=== PATIENT | male | born 1955 | race Caucasian/White ===

== ENCOUNTER 2017-10-19 10:29 | Observation (INO) | payer OTHER ==
[2017-10-19] VITALS (10 sets, daily range): BP systolic 123–168; BP diastolic 71–92; PULSE 58–85; RESP 16–18; TEMP 98.1–98.6; O2SAT 95–99
[~2017-10-19] VITALS: Ht 167.6 cm; Wt 92.4 kg
[~2017-10-19 10:29] MED LIST: [UNRECOGNIZED DRUG - CODE] RE
--- NOTE | 2017-10-19 10:40 | PD ---
HPI Chief Complaint: neuro Time Seen by Provider: 10:35 Travel History International Travel<30 days: No Contact w/Intl Traveler<30days: No History of Present Illness HPI Patient presents with concerns of left sided weakness with tingling and lightheadedness at approximately 7:30 this morning. Lightheadedness came and went a few times and has resolved. Weakness lasted approximately 15 minutes and has resolved. Tingling has been persistent. Reports a history of hyperlipidemia. Denies tobacco use. Denies diabetes. PFSH Past Medical History Diabetes: Yes Hiatal Hernia: Yes Social History Alcohol Use: Yes (SOCIALLY) Tobacco Use: No Substance Use: No Allergies-Medications (Allergen,Severity, Reaction): Coded Allergies: No Known Allergies (Unverified Adverse Reaction, Unknown, 10/19/17) Reported Meds & Prescriptions Reported Meds & Active Scripts Active Reported Aspirin EC (Aspirin) 81 Mg Tabdr 81 Mg PO DAILY Review of Systems General / Constitutional: No: Fever Eyes: No: Visual changes HENT: No: Headaches Cardiovascular: No: Chest Pain or Discomfort Respiratory: No: Shortness of Breath Gastrointestinal: No: Abdominal Pain Genitourinary: No: Dysuria Musculoskeletal: Positive: Weakness, No: Pain Skin: No Rash Neurologic: No: Weakness Psychiatric: No: Depression Endocrine: No: Polydipsia Hematologic/Lymphatic: No: Easy Bruising Physical Exam Narrative GENERAL: Well-nourished SKIN: Focused skin assessment warm/dry. HEAD: Atraumatic. Normocephalic. EYES: Pupils equal and round. No scleral icterus. No injection or drainage. ENT: No nasal bleeding or discharge. Mucous membranes pink and moist. NECK: Trachea midline. No JVD. CARDIOVASCULAR: Regular rate and rhythm. No murmur appreciated. RESPIRATORY: No accessory muscle use. Clear to auscultation. Breath sounds equal bilaterally. GASTROINTESTINAL: Abdomen soft, non-tender, nondistended. Hepatic and splenic margins not palpable. MUSCULOSKELETAL: No obvious deformities. No clubbing. No cyanosis. No edema. NEUROLOGICAL: Awake and alert. No obvious cranial nerve deficits. Motor grossly within normal limits. Normal speech. PSYCHIATRIC: Appropriate mood and affect; insight and judgment normal. ABCD 2 scale of 5 moderate risk Data Data Last Documented VS Vital Signs Date Time Temp Pulse Resp B/P (MAP) Pulse Ox O2 Delivery O2 Flow Rate FiO2 10/19/17 12:15 74 16 138/76 (96) 99 Room Air 10/19/17 10:30 98.1 Orders Orders Electrocardiogram (10/19/17 10:35) Prothrombin Time / Inr (Pt) (10/19/17 10:35) Complete Blood Count With Diff (10/19/17 10:35) Comprehensive Metabolic Panel (10/19/17 10:35) Troponin I (10/19/17 10:35) Urinalysis - C+S If Indicated (10/19/17 10:35) Ct Brain W/O Iv Contrast(Rout) (10/19/17 10:35) Ecg Monitoring (10/19/17 10:35) Iv Access Insert/Monitor (10/19/17 10:35) Oximetry (10/19/17 10:35) Blood Glucose (10/19/17 10:35) Aspirin (Aspirin) (10/19/17 10:45) Sodium Chloride 0.9% Flush (Ns Flush) (10/19/17 10:45) Place In Observation (10/19/17 ) Vital Signs (Adult) NORA.Q4H (10/19/17 12:51) Household Appliance Installer / Telemetry NORA.Q8H (10/19/17 12:51) ^ Fall Precautions (10/19/17 12:52) Admit Order (Ed Use Only) (10/19/17 ) Vital Signs (Adult) Q4H (10/19/17 12:53) Diet Heart Healthy (10/19/17 Lunch) Activity Oob With Assistance (10/19/17 12:53) Notify Dr: Other (10/19/17 12:53) Consult Neurology (10/19/17 ) Labs Laboratory Tests Test 10/19/17 11:10 10/19/17 12:35 White Blood Count 4.0 TH/MM3 Red Blood Count 4.74 MIL/MM3 Hemoglobin 15.0 GM/DL Hematocrit 44.3 % Mean Corpuscular Volume 93.6 FL Mean Corpuscular Hemoglobin 31.6 PG Mean Corpuscular Hemoglobin Concent 33.7 % Red Cell Distribution Width 13.1 % Platelet Count 182 TH/MM3 Mean Platelet Volume 7.3 FL Neutrophils (%) (Auto) 57.4 % Lymphocytes (%) (Auto) 26.1 % Monocytes (%) (Auto) 12.7 % Eosinophils (%) (Auto) 2.1 % Basophils (%) (Auto) 1.7 % Neutrophils # (Auto) 2.3 TH/MM3 Lymphocytes # (Auto) 1.0 TH/MM3 Monocytes # (Auto) 0.5 TH/MM3 Eosinophils # (Auto) 0.1 TH/MM3 Basophils # (Auto) 0.1 TH/MM3 CBC Comment DIFF FINAL Differential Comment Prothrombin Time 10.6 SEC Prothromb Time International Ratio 1.0 RATIO Blood Urea Nitrogen 14 MG/DL Creatinine 0.99 MG/DL Random Glucose 113 MG/DL Total Protein 6.3 GM/DL Albumin 3.4 GM/DL Calcium Level 8.3 MG/DL Alkaline Phosphatase 37 U/L Aspartate Amino Transf (AST/SGOT) 9 U/L Alanine Aminotransferase (ALT/SGPT) 31 U/L Total Bilirubin 0.6 MG/DL Sodium Level 139 MEQ/L Potassium Level 3.9 MEQ/L Chloride Level 106 MEQ/L Carbon Dioxide Level 25.2 MEQ/L Anion Gap 8 MEQ/L Estimat Glomerular Filtration Rate 76 ML/MIN Troponin I LESS THAN 0.02 NG/ML MDM Medical Decision Making Medical Screen Exam Complete: Yes Emergency Medical Condition: Yes Differential Diagnosis CVA, TIA, subdural bleed Narrative Course Assessment and plan discussed with patient and at bedside. EKG reveals sinus rhythm rate of 78. ABCD2 - 5 moderate risk factor Last [address] 10/19/17 1035 Signed Impressions: Service Date/Time: Thursday, October 19, 2017 10:45 - CONCLUSION: Negative noncontrast head CT. Bogdan Rosario MD Physician Communication Physician Communication Spoke with Dr August who recommended admission for further workup. Spoke with Dr Brown who is agreement, will admit with consult. Diagnosis Primary Impression: TIA (transient ischemic attack) Qualified Codes: G45.9 - Transient cerebral ischemic attack, unspecified Admitting Information Admitting Physician Requests: Admit Oleksandr Chaudhari MD Oct 19, 2017 10:40
[2017-10-19] MEDS ORDERED: SODIUM CHLORIDE 0.9% FLUSH 10 ML FLUSH IVF PRN (10:45)
[2017-10-19] MEDS ORDERED: ASPIRIN 325 MG TAB PO ONE (10:45)
--- NOTE | 2017-10-19 11:02 | RADRPT ---
EXAM DATE/TIME: 10/19/2017 10:45 [facility] COMPARISON: No previous studies available for comparison. INDICATIONS : Left sided weakness since this morning. RADIATION DOSE: 60.77 CTDIvol (mGy) MEDICAL HISTORY : Gastroesophageal reflux disease. Hernia, hiatal. Diabetes. SURGICAL HISTORY : None. ENCOUNTER: Initial ACUITY: 1 day PAIN SCALE: 0/10 LOCATION: cranial TECHNIQUE: Multiple contiguous axial images were obtained of the head. Using automated exposure control and adj ustment of the mA and/or kV according to patient size, radiation dose was kept as low as reasonably a chievable to obtain optimal diagnostic quality images. DICOM format image data is available electro nically for review and comparison. FINDINGS: CEREBRUM: The ventricles are normal for age. No evidence of midline shift, mass lesion, hemorrhage or acute in farction. No extra-axial fluid collections are seen. POSTERIOR FOSSA: The cerebellum and brainstem are intact. The 4th ventricle is midline. The cerebellopontine angle i s unremarkable. EXTRACRANIAL: The visualized portion of the orbits is intact. SKULL: The calvaria is intact. No evidence of skull fracture. CONCLUSION: Negative noncontrast head CT. Bogdan Rosario MD on October 19, 2017 at 11:00 Board Certified Radiologist. This report was verified electronically.
[2017-10-19 11:18] LABS: AUTOMATED NEUTROPHIL # 2.3 TH/MM3 (1.8-7.7); BASOPHIL # 0.1 TH/MM3 (0-0.2); BASOPHIL % 1.7 % (0.0-2.0); EOSINOPHIL # 0.1 TH/MM3 (0-0.4); EOSINOPHIL % 2.1 % (0.0-4.0); HEMATOCRIT 44.3 % (39.0-51.0); HEMO FLAGS DIFF FINAL; LYMPH % 26.1 % (9.0-44.0); MEAN CELL VOLUME 93.6 FL (80.0-100.0); MEAN CORPUSCULAR HEMOGLOBIN 31.6 PG (27.0-34.0); MEAN CORPUSCULAR HGB CONC 33.7 % (32.0-36.0); MONO % 12.7 % (0.0-8.0); NEUT % 57.4 % (16.0-70.0); PLATELET COUNT 182 TH/MM3 (150-450); RED BLOOD COUNT 4.74 MIL/MM3 (4.50-5.90); RED CELL DISTRIBUTION WIDTH 13.1 % (11.6-17.2)
[2017-10-19] MEDS ORDERED: ASPI81TA23 PO (11:20)
[2017-10-19 11:26] LABS: CHLORIDE 106 MEQ/L (98-107); POTASSIUM 3.9 MEQ/L (3.5-5.1); SODIUM (NA) 139 MEQ/L (136-145)
[2017-10-19 11:28] LABS: PROTHROMBIN TIME - PATIENT 10.6 SEC (9.8-11.6)
[2017-10-19 11:29] LABS: ANION GAP 8 MEQ/L (5-15); BICARBONATE 25.2 MEQ/L (21.0-32.0); BLOOD UREA NITROGEN 14 MG/DL (7-18)
[2017-10-19 11:32] LABS: ALT (GPT) 31 U/L (12-78); AST (GOT) 9 U/L (15-37); GLOMERULAR FILTRATION RATE 76 ML/MIN (>89)
[2017-10-19 11:34] LABS: TOTAL BILIRUBIN ADULT 0.6 MG/DL (0.2-1.0)
[2017-10-19 11:35] LABS: ALKALINE PHOSPHATASE 37 U/L (45-117)
[2017-10-19 12:56] LABS: BLOOD, URINE NEG (NEG); GLUCOSE,URINE NEG (NEG); KETONE, URINE NEG (NEG); NITRITE,URINE NEG (NEG); PH, URINE 6.5 (5.0-8.5)
[2017-10-19 13:00] LABS: COMMENT (UR) CULT NOT INDICATED; CULTURE IF INDICATED CULT NOT INDICATED; METHOD OF COLLECTION CATH; SQUAMOUS EPITHELIAL CELL URINE 0-5 /hpf (0-5); URINE COLOR YELLOW (YELLW/STRAW)
--- NOTE | 2017-10-19 13:05 | EKG ---
Date Performed: 10/19/2017 Time Performed: 10:41:49 PTAGE: 61 years EKG: Small inferior Q-waves of undetermined significance Otherwise within normal limits PREVIOUS TRACING : 10/23/2012 02.43 Since previous tracing, no significant change. DOCTOR: Merrick Quiroz Interpretating Date/Time 10/19/2017 13:04:11
[2017-10-19] MEDS ORDERED: DEXTROSE 50% IN WATER 50 ML VIAL(D50) IV PUSH PRN (14:30)
[2017-10-19] MEDS ORDERED: ENALAPRILAT 1.25 MG/ML VIAL IV PUSH PRN (14:30)
[2017-10-19] MEDS ORDERED: GLUCAGON 1 MG/ML VIAL OTHER PRN (14:30)
--- NOTE | 2017-10-19 16:38 | RADRPT ---
EXAM DATE/TIME: 10/19/2017 15:52 [facility] COMPARISON: No previous studies available for comparison. INDICATIONS : Cerebrovascular accident. MEDICAL HISTORY : Gastroesophageal reflux disease. Glasses. Anticoagulant therapy. Hiatal hernia. Diabetes. SURGICAL HISTORY : Hernia repair. Right acl repair. Left knee surgey. Left arm repair. ENCOUNTER: Initial ACUITY: 1 day PAIN SCORE: 0/10 LOCATION: Bilateral neck PEAK SYSTOLIC VELOCITIES (cm/sec): ICA/CCA RATIO: Right: 1.1 Left: 1.2 ICA: Right: 82 Left: 101 CCA: Right: 78 Left: 86 ECA: Right: 78 Left: 85 VERTEBRAL: Right: 43 antegrade Left: 94 antegrade Elevated flow velocities and ICA/CCA ratios have been found to correlate with increased degrees of vessel stenosis, calculated as percentage of diameter relative to a normal segment of distal ICA/CCA FINDINGS: RIGHT CAROTID: No significant stenosis is visualized. The waveforms are within normal limits. LEFT CAROTID: No significant stenosis is visualized. The waveforms are within normal limits. VERTEBRAL ARTERIES: Antegrade flow is seen in both vertebral arteries. MISCELLANEOUS: None. CONCLUSION: No significant stenosis is seen. Bogdna Alcocer MD on October 19, 2017 at 16:35 Board Certified Radiologist. This report was verified electronically.
--- NOTE | 2017-10-19 16:44 | ECHRPT ---
Indication: CVA/TIA CONCLUSIONS The left ventricular systolic function is normal with an estimated ejection fraction in the range of 55-60%. There is trace tricuspid valve regurgitation. Mild dilatation of the ascending aorta (3.9 cm) BP: / HR: Rhythm: MEASUREMENTS (Male / Female) Normal Values Technical Quality:Good 2D ECHO LV Diastolic Diameter PLAX 4.4 cm 4.2 - 5.9 / 3.9 - 5.3 cm LV Systolic Diameter PLAX 3.1 cm IVS Diastolic Thickness 0.9 cm 0.6 - 1.0 / 0.6 - 0.9 cm LVPW Diastolic Thickness 0.8 cm 0.6 - 1.0 / 0.6 - 0.9 cm LV Relative Wall Thickness 0.4 RV Internal Dim ED PLAX 2.3 cm LA Systolic Diameter LX 3.6 cm 3.0 - 4.0 / 2.7 - 3.8 cm M-MODE Aortic Root Diameter MM 3.7 cm AV Cusp Separation MM 2.4 cm DOPPLER Mitral E Point Velocity 93.8 cm/s Mitral A Point Velocity 82.1 cm/s Mitral E to A Ratio 1.1 TR Peak Velocity 258.0 cm/s TR Peak Gradient 26.6 mmHg FINDINGS LEFT VENTRICLE Normal left ventricular size. Wall thickness is measured at the upper limits of normal. The left ventricular systolic function is normal with an estimated ejection fraction in the range of 55-60%. No regional wall motion abnormalities are present. RIGHT VENTRICLE Normal right ventricular size and systolic function. LEFT ATRIUM The left atrial size is normal. RIGHT ATRIUM The right atrial size is normal. ATRIAL SEPTUM Normal atrial septal thickness. AORTA Mild dilatation of the ascending aorta of 3.9cm. MITRAL VALVE Structurally normal mitral valve. No mitral valve stenosis or regurgitation. AORTIC VALVE Trileaflet aortic valve. No aortic valve stenosis or regurgitation. TRICUSPID VALVE Structurally normal tricuspid valve. No tricuspid valve stenosis. There is trace tricuspid valve regurgitation. PULMONARY VALVE The pulmonary valve is not well visualized. VESSELS The inferior vena cava is normal in size. PERICARDIUM No pericardial effusion. Robert Franco DO (Electronically Signed) Final Date:19 October 2017 16:43
[2017-10-19] MEDS: INSULIN ASPART SUPPLEMENTAL SCALE SQ SCH ×2 (17:00→21:00)
--- NOTE | 2017-10-19 17:42 | RADRPT ---
EXAM DATE/TIME: 10/19/2017 17:23 [facility] COMPARISON: No previous studies available for comparison. INDICATIONS : Left side numbness and tingling. MEDICAL HISTORY : None. SURGICAL HISTORY : Hiatal hernia repair, right knee reconstruction. ENCOUNTER: Initial ACUITY: 1 day PAIN SCORE: 0/10 LOCATION: cranial Please note a normal MRA of the brain does not entirely exclude the possibility of a small aneurysm, nor the possibility of distal intracranial vessel disease. TECHNIQUE: 3D time of flight MRA was performed. Source images, multiplanar STS MIP, and 3D volume MIP reconstru ctions were reviewed. FINDINGS: There is excellent visualization of the major intracranial arteries out to the second-order branch ve ssels. There is no evidence for aneurysm, vessel truncation or stenosis, and no evidence for vascula r malformation. CONCLUSION: Normal examination for a patient of this age. Saul Hooper MD on October 19, 2017 at 17:40 Board Certified Radiologist. This report was verified electronically.
--- NOTE | 2017-10-19 17:57 | RADRPT ---
EXAM DATE/TIME: 10/19/2017 17:23 [facility] COMPARISON: No previous studies available for comparison. INDICATIONS : Left side numbness and tingling. MEDICAL HISTORY : None. SURGICAL HISTORY : Hiatal hernia repair, right knee reconstruction. ENCOUNTER: Initial ACUITY: 1 day PAIN SCORE: 0/10 LOCATION: cranial TECHNIQUE: Multiplanar, multisequence MRI of the brain was performed without contrast. FINDINGS: CEREBRUM: The ventricles are normal for age. No evidence of midline shift, mass lesion, hemorrhage or acute in farction. No extraaxial fluid collections are seen. The pituitary gland and suprasellar cistern are normal in configuration. WHITE MATTER: There are multiple focal small areas of signal abnormality within the cerebral white matter. POSTERIOR FOSSA: The cerebellum and brainstem are intact. The 4th ventricle is midline. The cerebellopontine angle is unremarkable. The cerebellar tonsils are normal in position. DIFFUSION IMAGING: No focal areas of restricted diffusion are seen. No evidence of acute infarction. EXTRACRANIAL: The visualized portions of the orbits are unremarkable. There is a mucous retention cyst at the right maxillary sinus. There is minimal mucosal thickening at the medial left maxillary sinus. CONCLUSION: 1. No acute abnormality seen. 2. Scattered multiple focal areas of signal abnormality within the cerebral white matter. These are n onspecific. They can be from small vessel ischemic change Bogdan Alcocer MD on October 19, 2017 at 17:52 Board Certified Radiologist. This report was verified electronically.
--- NOTE | 2017-10-19 20:09 | MH ---
cc: SOHA BHARDWAJ DATE OF ADMISSION: 10/19/2017 ADMITTING DIAGNOSIS: TIA. HISTORY OF PRESENT ILLNESS: Mr. Schmidt is a very pleasant 61-year gentleman who presented to the emergency room after waking up this morning and experiencing some numbness and tingling on his left side. He says he has had back issues in the past so he thought perhaps this was related to that; however, the symptoms did not resolve. Later on during the course of the morning, he started developing some numbness on his left mid arm as well. He says that actually when he in the shower he could not feel water hitting the upper area of his arm. This concerned him so he came to the emergency room. He says also at the time he did have a slight headache. He does relate a slight twinge in his chest that was specifically located and did not radiate. It did not cause any shortness of breath. He says the numbness and tingling in his left arm his left leg came and went throughout the day. He did feel little bit of heaviness in his left leg but he does not describe any difficulty moving and with ambulation. He states he had been in good health until this event. He has not been sick and has not been having any fevers. He has not had any recent neck pain or lower back pain. His lower back problems were quite a while ago. He denies any history of hypertension. He states he is not diabetic. He has had some hyperlipidemia but he says he has never had to go on medications with that and every time his cholesterol has gone up, he is able to bring it down. He is a prior smoker of one pack in approximately one to two weeks. He stopped in the . PAST MEDICAL HISTORY: 1. Borderline cholesterol. 2. Benign prostate hypertrophy. 3. He has also had prior issues with his back. PAST SURGICAL HISTORY: 1. Arthroscopic surgery of his right knee. 2. He has had an umbilical hernia repair. 3. He did have surgery on his left cheek in the past. ALLERGIES: HE DENIES. CURRENT MEDICATIONS: 1. A baby aspirin. 2. Cialis 5 milligrams for his benign prostate hypertrophy. HABITS: He is a former smoker, as stated. He has not smoked since the . He smokes only socially. He drinks only socially. SOCIAL HISTORY: He is . His is in the room with him. He is currently retired. 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 He says he spends three days a week taking care of his 3-year-old grandchild. REVIEW OF SYSTEMS: No fevers or chills. No cough. No palpitations. No shortness of breath. He has denied any abdominal pain or any change in his bowel movements. No difficulty with urination. PHYSICAL EXAMINATION: VITAL SIGNS: On physical exam, temperature is 94, pulse is 65, respirations 18, blood pressure is 124/71, pulse ox is 97% room air. GENERAL: He is lying in the hospital bed. He has a very pleasant and conversant and does not appear to be in any acute distress. HEAD, EYES, EARS, NOSE, THROAT: Normocephalic and traumatic. Extraocular muscles intact. He has a clear oral mucosa. NECK: Neck is supple. I hear no bruits. He does have a scar on his left cheek. LUNGS: His lungs were clear to auscultation bilaterally. HEART: His heart is regular rate and rhythm. He has no ectopy or murmur. ABDOMEN: Abdomen is globose. He has got good bowel sounds in all four quadrants. No rebound or guarding. EXTREMITIES: Show no clubbing, cyanosis or edema. He is able to use move all extremities well. NEUROLOGIC: Muscle strength is 5/5 proximal and distal. He describes to me areas of numbness in his left arm on the lateral aspect, I would say fpc down the upper arm as well and the same on the lateral aspect of left upper thigh. Both of these areas at this point have sensation. LABORATORY DATA: Lab work that was done when he came into the emergency room showed white count of 4, hemoglobin of 15, hematocrit of 44.3, platelet count of 182,000. PT was 10.6. INR was 1. Sodium was 139, potassium 3.9, BUN 14, creatinine 0.99, GFR was 76, random glucose was 113. Liver function tests were normal. Troponin was less than 0.02. His urinalysis was negative. IMAGING STUDIES: CT scan of the brain that was performed when he presented was read as negative. MRI of the brain showed no acute abnormality. There were scattered multifocal areas of signal abnormality within the cerebral white matter. These are nonspecific. They could be from small vessel ischemic changes. Carotid arteries showed no significant stenosis. The MRA of the brain was normal for a patient of his age. EKGS: His EKG showed small inferior T waves of indeterminate significance. I had ordered an echocardiogram and this has already been done and showed an ejection fraction in the range of 55% to 60%. This is remarkable for mild dilatation of the ascending aorta 3.9 cm and trace tricuspid valve regurgitation. ASSESSMENT AND PLAN: This is a 61-year-old patient presenting to the emergency room with history highly suggestive of TIA. So far his workup has been negative. The ER doctor did speak to Dr. Auguts from neurology who commended his admission and further evaluation, which has been done during the course of this afternoon. At this point, I will continue him with a full aspirin. His Holter monitor is still pending. I did discuss with the patient that at this point a lot of what we do consists of prevention and control of blood pressure. I did order hemoglobin A1c to check for diabetes as well as a lipid profile. We may need to be above more aggressive in controlling his cholesterol at this point. If his Holter monitor his is unrevealing, I expect discharge tomorrow after he has been seen by neurology. MD MICHELLE Ayers/YANELI /7:33 PM /7:47 PM
--- NOTE | 2017-10-19 20:58 | HHI.PR ---
Review/Management Diagnosis TIA HTN urgency HLD Plan Neuro checks Q4h Aspirin 162mg daily MRI brain w/o contrast CUS DVT prophylaxis Statin GI prophylaxis Diagnosis/Plan: Subjective Subjective Comments - I was called by ED physician at [facility], about the TIA/ Stroke like symptoms, and given the resolution of symptoms, patient would not be a candidate for iv thrombolysis, and I recommended patient to be admitted for TIA work up. - In the afternoon, I stopped by the hospital room to examine the patient twice , first time, he was undergoing carotid US study, thus, I rounded on other patients, then I stopped by the second time, where there were family members at the bed side, but when I started the clinical encounter, a stroke alert at the main [facility] hospital was called, I had to go to the other hospital.The patient and family understand this. Active Medications Current Medications Medications (Trade) Dose Ordered Sig/Pardeep Route Start Time Stop Time Status Last Admin (NS Flush) 2 ml UNSCH PRN IVF 10/19/17 10:45 (Vasotec Inj) 1.25 mg Q4H PRN IV PUSH 10/19/17 14:30 (Aspirin) 325 mg DAILY PO 10/20/17 09:00 (NovoLOG SUPPLEMENTAL SCALE) 1 ACHS SQ 10/19/17 17:00 (D50w (Vial) Inj) 50 ml UNSCH PRN IV PUSH 10/19/17 14:30 (Glucagon Inj) 1 mg UNSCH PRN OTHER 10/19/17 14:30 Allergies Allergies Coded Allergies No Known Allergies (Unverified Allergy, Unknown, 10/19/17) Review of Systems All other ROS: ROS reviewed as documented in chart Exam I&O / VS 10/19/17 10/19/17 10/20/17 14:59 22:59 06:59 Intake Total 300 ml Output Total 550 ml Balance -550 ml 300 ml Intake Oral 300 ml Output Urine Total 550 ml Vital Signs Date Time Temp Pulse Resp B/P (MAP) Pulse Ox O2 Delivery O2 Flow Rate FiO2 10/19/17 17:00 98.4 65 18 124/71 (88) 97 10/19/17 16:07 69 10/19/17 14:12 68 16 138/90 (106) 97 10/19/17 13:15 72 16 144/88 (106) 98 Room Air 10/19/17 12:30 69 16 97 Room Air 10/19/17 12:15 74 16 138/76 (96) 99 Room Air 10/19/17 11:15 67 16 130/79 (96) 98 Room Air 10/19/17 10:35 82 16 98 Room Air 10/19/17 10:30 98.1 85 16 168/92 (117) 98 10/19/17 10:30 16 98 Room Air Objective Path Results Last [address] 10/19/17 1035 Signed Impressions: Service Date/Time: Thursday, October 19, 2017 10:45 - CONCLUSION: Negative noncontrast head CT. Bogdan Rosario MD Head Magnetic Resonance Angiography 10/19/17 0000 Signed Impressions: Service Date/Time: Thursday, October 19, 2017 17:23 - CONCLUSION: Normal examination for a patient of this age. Saul Hooper MD Carotid Artery Ultrasound 10/19/17 0000 Signed Impressions: Service Date/Time: Thursday, October 19, 2017 15:52 - CONCLUSION: No significant stenosis is seen. Bogdan Alcocer MD Brain MRI 10/19/17 0000 Signed Impressions: Service Date/Time: Thursday, October 19, 2017 17:23 - CONCLUSION: 1. No acute abnormality seen. 2. Scattered multiple focal areas of signal abnormality within the cerebral white matter. These are nonspecific. They can be from small vessel ischemic change Bogdan Alcocer MD Micro and Labs Laboratory Tests Test 10/19/17 11:10 10/19/17 12:35 10/19/17 15:42 10/19/17 20:32 White Blood Count 4.0 Red Blood Count 4.74 Hemoglobin 15.0 Hematocrit 44.3 Mean Corpuscular Volume 93.6 Mean Corpuscular Hemoglobin 31.6 Mean Corpuscular Hemoglobin Concent 33.7 Red Cell Distribution Width 13.1 Platelet Count 182 Mean Platelet Volume 7.3 Neutrophils (%) (Auto) 57.4 Lymphocytes (%) (Auto) 26.1 Monocytes (%) (Auto) 12.7 Eosinophils (%) (Auto) 2.1 Basophils (%) (Auto) 1.7 Neutrophils # (Auto) 2.3 Lymphocytes # (Auto) 1.0 Monocytes # (Auto) 0.5 Eosinophils # (Auto) 0.1 Basophils # (Auto) 0.1 CBC Comment DIFF FINAL Differential Comment Prothrombin Time 10.6 Prothromb Time International Ratio 1.0 Blood Urea Nitrogen 14 Creatinine 0.99 Random Glucose 113 Total Protein 6.3 Albumin 3.4 Calcium Level 8.3 Alkaline Phosphatase 37 Aspartate Amino Transf (AST/SGOT) 9 Alanine Aminotransferase (ALT/SGPT) 31 Total Bilirubin 0.6 Sodium Level 139 Potassium Level 3.9 Chloride Level 106 Carbon Dioxide Level 25.2 Anion Gap 8 Estimat Glomerular Filtration Rate 76 Troponin I LESS THAN 0.02 LESS THAN 0.02 Urine Collection Type CATH Urine Color YELLOW Urine Turbidity CLEAR Urine pH 6.5 Urine Specific [place] 1.011 Urine Protein NEG Urine Glucose (UA) NEG Urine Ketones NEG Urine Occult Blood NEG Urine Nitrite NEG Urine Bilirubin NEG Urine Leukocyte Esterase NEG Urine Squamous Epithelial Cells 0-5 Microscopic Urinalysis Comment CULT NOT INDICATED Katlyn August MD Oct 19, 2017 20:58
[2017-10-20] VITALS: BP 106/59; PULSE 55; RESP 16; TEMP 98.6; O2SAT 98
[2017-10-20 08:00] VITALS: BP 135/76; PULSE 69; RESP 16; TEMP 97.6; O2SAT 96
[2017-10-20] MEDS: INSULIN ASPART SUPPLEMENTAL SCALE SQ SCH ×2 (08:00→12:00)
[2017-10-20] MEDS ORDERED: ASPIRIN 325 MG TAB PO SCH (09:00)
[2017-10-20 09:16] LABS: POTASSIUM 4.2 MEQ/L (3.5-5.1)
[2017-10-20 09:49] LABS: BICARBONATE 27.7 MEQ/L (21.0-32.0)
--- NOTE | 2017-10-20 10:28 | HHI.PR ---
Subjective Remarks No further episodes of numbness since yesterday. Objective Vitals Vital Signs Date Time Temp Pulse Resp B/P (MAP) Pulse Ox O2 Delivery O2 Flow Rate FiO2 10/20/17 08:00 97.6 69 16 135/76 (95) 96 10/20/17 00:00 98.6 55 16 106/59 (75) 98 10/19/17 21:29 61 18 123/85 (98) 95 10/19/17 20:10 66 10/19/17 20:00 98.6 58 16 123/76 (92) 97 10/19/17 17:00 98.4 65 18 124/71 (88) 97 10/19/17 16:07 69 10/19/17 14:12 68 16 138/90 (106) 97 10/19/17 13:15 72 16 144/88 (106) 98 Room Air 10/19/17 12:30 69 16 97 Room Air 10/19/17 12:15 74 16 138/76 (96) 99 Room Air 10/19/17 11:15 67 16 130/79 (96) 98 Room Air 10/19/17 10:35 82 16 98 Room Air 10/19/17 10:30 98.1 85 16 168/92 (117) 98 10/19/17 10:30 16 98 Room Air Result Diagram: 10/19/17 1110 10/20/17 0850 Other Results Laboratory Tests Test 10/19/17 11:10 10/19/17 12:35 10/19/17 15:42 10/19/17 20:32 White Blood Count 4.0 TH/MM3 Red Blood Count 4.74 MIL/MM3 Hemoglobin 15.0 GM/DL Hematocrit 44.3 % Mean Corpuscular Volume 93.6 FL Mean Corpuscular Hemoglobin 31.6 PG Mean Corpuscular Hemoglobin Concent 33.7 % Red Cell Distribution Width 13.1 % Platelet Count 182 TH/MM3 Mean Platelet Volume 7.3 FL Neutrophils (%) (Auto) 57.4 % Lymphocytes (%) (Auto) 26.1 % Monocytes (%) (Auto) 12.7 % Eosinophils (%) (Auto) 2.1 % Basophils (%) (Auto) 1.7 % Neutrophils # (Auto) 2.3 TH/MM3 Lymphocytes # (Auto) 1.0 TH/MM3 Monocytes # (Auto) 0.5 TH/MM3 Eosinophils # (Auto) 0.1 TH/MM3 Basophils # (Auto) 0.1 TH/MM3 CBC Comment DIFF FINAL Differential Comment Prothrombin Time 10.6 SEC Prothromb Time International Ratio 1.0 RATIO Blood Urea Nitrogen 14 MG/DL Creatinine 0.99 MG/DL Random Glucose 113 MG/DL Total Protein 6.3 GM/DL Albumin 3.4 GM/DL Calcium Level 8.3 MG/DL Alkaline Phosphatase 37 U/L Aspartate Amino Transf (AST/SGOT) 9 U/L Alanine Aminotransferase (ALT/SGPT) 31 U/L Total Bilirubin 0.6 MG/DL Sodium Level 139 MEQ/L Potassium Level 3.9 MEQ/L Chloride Level 106 MEQ/L Carbon Dioxide Level 25.2 MEQ/L Anion Gap 8 MEQ/L Estimat Glomerular Filtration Rate 76 ML/MIN Troponin I LESS THAN 0.02 NG/ML LESS THAN 0.02 NG/ML LESS THAN 0.02 NG/ML Urine Collection Type CATH Urine Color YELLOW Urine Turbidity CLEAR Urine pH 6.5 Urine Specific [place] 1.011 Urine Protein NEG mg/dL Urine Glucose (UA) NEG mg/dL Urine Ketones NEG mg/dL Urine Occult Blood NEG Urine Nitrite NEG Urine Bilirubin NEG Urine Leukocyte Esterase NEG Urine Squamous Epithelial Cells 0-5 /hpf Microscopic Urinalysis Comment CULT NOT INDICATED Vitamin B12 Level 257 PG/ML Thyroid Stimulating Hormone 3rd Gen 3.310 uIU/ML Test 10/20/17 03:10 10/20/17 08:50 Troponin I LESS THAN 0.02 NG/ML Blood Urea Nitrogen 11 MG/DL Creatinine 1.00 MG/DL Random Glucose 118 MG/DL Calcium Level 8.7 MG/DL Sodium Level 138 MEQ/L Potassium Level 4.2 MEQ/L Chloride Level 104 MEQ/L Carbon Dioxide Level 27.7 MEQ/L Anion Gap 6 MEQ/L Estimat Glomerular Filtration Rate 75 ML/MIN Imaging Last Impressions Head CT 10/19/17 1035 Signed Impressions: Service Date/Time: Thursday, October 19, 2017 10:45 - CONCLUSION: Negative noncontrast head CT. Bogdan Rosario MD Head Magnetic Resonance Angiography 10/19/17 0000 Signed Impressions: Service Date/Time: Thursday, October 19, 2017 17:23 - CONCLUSION: Normal examination for a patient of this age. Saul Hooper MD Carotid Artery Ultrasound 10/19/17 0000 Signed Impressions: Service Date/Time: Thursday, October 19, 2017 15:52 - CONCLUSION: No significant stenosis is seen. Bogdan Alcocer MD Brain MRI 10/19/17 0000 Signed Impressions: Service Date/Time: Thursday, October 19, 2017 17:23 - CONCLUSION: 1. No acute abnormality seen. 2. Scattered multiple focal areas of signal abnormality within the cerebral white matter. These are nonspecific. They can be from small vessel ischemic change Bogdan Alcocer MD Objective Remarks Walking in room Lungs cta heart rrr ext no c/c/e A/P Problem List: (1) TIA (transient ischemic attack) ICD Codes: G45.9 - Transient cerebral ischemic attack, unspecified Status: Resolved Plan: Symptoms resolved at this point. Morning labwork still pending. discussed that if cholesterol elevated will start on statin to be aggressive with risk factors. Neurologist has tried to see him twice. Will discuss with them if they have further recommendations. Continue full dose aspirin. Discharge Planning Discharge later today or bing am pending neurology input. Problem Qualifiers (1) TIA (transient ischemic attack): Qualified Codes: G45.9 - Transient cerebral ischemic attack, unspecified Faye Headley MD Oct 20, 2017 10:28
[2017-10-20 12:00] VITALS: BP 132/83; PULSE 71; RESP 16; TEMP 98.1; O2SAT 97
--- NOTE | 2017-10-20 14:27 | HHI.PR ---
Review/Management Diagnosis TIA HTN urgency HLD Plan Stable from neurology stand point Neurologic investigations are unremarkable with no acute intracranial abnormalities Aspirin 162mg daily Statin Follow up with neurology a outpatient Follow up with PCP for monitoring of BP Discussed case with RN Please call for questions Diagnosis/Plan: Subjective Subjective Comments No acute events reported Neurologic investigations are unremarkable, MRI brain, MRA Head & CIUS Full resolution of symptoms Patient endorses no new complaints No family at bed side Active Medications Current Medications Medications (Trade) Dose Ordered Sig/Pardeep Route Start Time Stop Time Status Last Admin (NS Flush) 2 ml UNSCH PRN IVF 10/19/17 10:45 (Vasotec Inj) 1.25 mg Q4H PRN IV PUSH 10/19/17 14:30 (Aspirin) 325 mg DAILY PO 10/20/17 09:00 10/20/17 08:27 (NovoLOG SUPPLEMENTAL SCALE) 1 ACHS SQ 10/19/17 17:00 (D50w (Vial) Inj) 50 ml UNSCH PRN IV PUSH 10/19/17 14:30 (Glucagon Inj) 1 mg UNSCH PRN OTHER 10/19/17 14:30 Allergies Allergies Coded Allergies No Known Allergies (Unverified Allergy, Unknown, 10/19/17) Review of Systems All other ROS: ROS reviewed as documented in chart Exam I&O / VS Vital Signs Date Time Temp Pulse Resp B/P (MAP) Pulse Ox O2 Delivery O2 Flow Rate FiO2 10/20/17 08:00 97.6 69 16 135/76 (95) 96 10/20/17 00:00 98.6 55 16 106/59 (75) 98 10/19/17 21:29 61 18 123/85 (98) 95 10/19/17 20:10 66 10/19/17 20:00 98.6 58 16 123/76 (92) 97 10/19/17 17:00 98.4 65 18 124/71 (88) 97 10/19/17 16:07 69 General: Alert and Oriented, No acute distress Eye: PERRL, Normal conjuctiva Respiratory: Lungs CTA, Non-labored respirations Cardiology: Normal rate, Intact pulses Neurologic: Oriented, Normal sensory, Normal motor, No focal defects, CN II- XII intact, Normal DTR's Psychiatric: Cooperative, Appropriate mood & affect, Normal judgement Objective Radiology Results Last [address] 10/19/17 1035 Signed Impressions: Service Date/Time: Thursday, October 19, 2017 10:45 - CONCLUSION: Negative noncontrast head CT. Bogdan Rosario MD Head Magnetic Resonance Angiography 10/19/17 0000 Signed Impressions: Service Date/Time: Thursday, October 19, 2017 17:23 - CONCLUSION: Normal examination for a patient of this age. Saul Hooper MD Carotid Artery Ultrasound 10/19/17 0000 Signed Impressions: Service Date/Time: Thursday, October 19, 2017 15:52 - CONCLUSION: No significant stenosis is seen. Bogdan Alcocer MD Brain MRI 10/19/17 0000 Signed Impressions: Service Date/Time: Thursday, October 19, 2017 17:23 - CONCLUSION: 1. No acute abnormality seen. 2. Scattered multiple focal areas of signal abnormality within the cerebral white matter. These are nonspecific. They can be from small vessel ischemic change Bogdan Alcocer MD Micro and Labs Laboratory Tests Test 10/19/17 15:42 10/19/17 20:32 10/20/17 03:10 10/20/17 08:50 Troponin I LESS THAN 0.02 LESS THAN 0.02 LESS THAN 0.02 Vitamin B12 Level 257 Thyroid Stimulating Hormone 3rd Gen 3.310 Blood Urea Nitrogen 11 Creatinine 1.00 Random Glucose 118 Calcium Level 8.7 Sodium Level 138 Potassium Level 4.2 Chloride Level 104 Carbon Dioxide Level 27.7 Anion Gap 6 Estimat Glomerular Filtration Rate 75 Triglycerides Level 102 Cholesterol Level 246 LDL Cholesterol 155 HDL Cholesterol 71.0 Cholesterol/HDL Ratio 3.46 Katlyn August MD Oct 20, 2017 14:27
[2017-10-20 15:57] LABS: HEMOGLOBIN A1a 1.1 %; HEMOGLOBIN A1b 0.8 %; HEMOGLOBIN Ao 85.6 %; HEMOGLOBIN F 0.9 %; HEMOGLOBIN LA1C 1.9 %; HEMOGLOBIN P3 3.6 %
[2017-10-20 16:00] VITALS: BP 146/88; PULSE 76; RESP 16; TEMP 98.2; O2SAT 97
[2017-10-20] MEDS ORDERED: ASA325 PO (16:05)
[2017-10-20] MEDS ORDERED: ATOR20TA15 PO (16:05)
[2017-10-21] MEDS ORDERED: ATORVASTATIN 20 MG TAB PO SCH (09:00)
--- NOTE | 2017-10-22 16:08 | HM ---
Date Performed: 10/20/2017 Time Performed: 15:49:00 HOOKUP DATE: 10/20/17 03:49:00 PM Mon ANALYSIS START TIME: 10/20/2017 3:54:00 PM ANALYSIS END TIME: 10/21/2017 3:58:00 PM PATIENT AGE: 61 PATIENT HEIGHT PATIENT WEIGHT DRUG LIST PATIENT DIAGNOSIS: TIA TEST NARRATIVE: The patient's average heart rate was 73 BPM. Heart rates greater than 120 B PM were noted 1% of the time. No episodes of bradycardia were noted. No pauses exceeding 2.0 sec onds were noted. 3 ventricular ectopics, which represented < 1% of the total beat count, were not ed. The highest ventricular ectopic frequency occurred from 09:00 PM to 10:00 PM Mon. During this t debra 1 VE(s) occurred. Ventricular ectopics were observed as 3 isolated beat(s) only. No couplets or runs were noted. 248 supraventricular ectopics, which represented < 1% of the total beat count, were noted. The highest supraventricular ectopic frequency occurred from 09:00 PM to 10:00 PM Mon. During this time 184 SVE(s) occurred. No episodes of ST depression (defined as -1.0 mm or more) w ere noted in channel 1. No episodes of ST depression (defined as -1.0 mm or more) were noted in cope freddy 2. No episodes of ST depression (defined as -1.0 mm or more) were noted in channel 3. TEST INTERPRETATION: Sinus rhythm and sinus tachycardia Rare PVCs S igned by : Marco Dawson
== END 2017-10-20 17:41 | disposition home or self-care (01) ==
LOC: PHED 10:29 → PHEDA 12:56 → PH3A 14:40
PROVIDERS: ADMIT Legal Medicine; ATTEND Legal Medicine
DX: I16.0 Hypertensive urgency (principal); R55 Syncope and collapse; R53.1 Weakness; R42 Dizziness and giddiness; E78.5 Hyperlipidemia, unspecified; N40.0 Benign prostatic hyperplasia without lower urinary tract symptoms; E83.51 Hypocalcemia; R79.89 Other specified abnormal findings of blood chemistry; R79.1 Abnormal coagulation profile; Z87.891 Personal history of nicotine dependence; Z79.82 Long term (current) use of aspirin
CPT/HCPCS: 70450; 70544; 70551; 80048; 80053; 80061; 81001; 82607; 82948; 83036; 84443; 84484; 85025; 85610; 86038; 93005; 93225; 93226; 93306; 93880; 97162; 97165; 99285; G0378; G8987; G8988; G8989

== ENCOUNTER 2018-09-05 06:25 | Observation (INO) ==
--- NOTE | 2018-09-05 07:08 | ED ---
HPI General Chief complaint: Chest Pain Stated complaint: Medical Time Seen by Provider: 09/05/18 06:51 Source: patient Mode of arrival: ambulatory Limitations: no limitations History of Present Illness HPI narrative: 62yo M with PMH of HLD, alcohol abuse, TIA here with c/o midsternal chest pain, generalized fatigue, intermittent irregular heart beat for 2 days. Said chest pain is mild, 1 or 2 out of 10, dull, nonradiating. Said it is intermittent and no exacerbating or alleviating factors. Denies any fever, cough, sob, n/v, abdominal pain, focal weakness or numbness. Last stress test was over 10 years ago. Does not have a traffic control signaler. Took aspirin 325mg today. Denies any family history of cardiac disease. Denies any drugs or cig smoking. Last alcoholic drink was yesterday afternoon. Related Data Home Medications Medication Instructions Recorded Confirmed aspirin 325 mg PO DAILY 09/05/18 09/05/18 atorvastatin 20 mg PO DAILY 09/05/18 09/05/18 Allergies Allergy/AdvReac Type Severity Reaction Status Date / Time No Known Allergies Allergy Verified 09/05/18 06:31 Review of Systems ROS: all other systems reviewed are negative [facility] Medical History Medical History Hyperlipidemia (Acute) TIA (transient ischemic attack) (Acute) Social History Social History Substance History: No History of Abuse Second Hand Smoke Exposure: No Smoking Status: Former smoker Tobacco Type: Cigarettes How Often Do You Have a Drink Containing Alcohol: 4 or more times a week Recent Travel in [facility] within the Last 8 Weeks: No Recent Out of Country Travel within the Last 8 Weeks: No Immunization History Tetanus Immunization: Unsure Exam Narrative Exam Narrative: GENERAL: [-] SKIN: Focused skin assessment warm/dry. HEAD: Atraumatic. Normocephalic. EYES: Pupils equal and round. No scleral icterus. No injection or drainage. ENT: No nasal bleeding or discharge. Mucous membranes pink and moist. NECK: Trachea midline. No JVD. CARDIOVASCULAR: Regular rate and rhythm. No murmur appreciated. RESPIRATORY: No accessory muscle use. Clear to auscultation. Breath sounds equal bilaterally. GASTROINTESTINAL: Abdomen soft, non-tender, nondistended. No rebound tenderness or guarding. MUSCULOSKELETAL: No obvious deformities. No clubbing. No cyanosis. Trace bilateral lower extremity edema. NEUROLOGICAL: Awake and alert. No obvious cranial nerve deficits. Motor grossly within normal limits. Normal speech. PSYCHIATRIC: Appropriate mood and affect; insight and judgment normal. Course Initial Documented Vital Signs Temperature 98.9 F 09/05/18 06:27 Pulse Rate 71 09/05/18 06:27 Respiratory Rate 19 09/05/18 06:27 Blood Pressure 172/93 H 09/05/18 06:27 Pulse Oximetry 98 09/05/18 06:27 Last Documented Vital Signs Temperature 98.5 F 09/05/18 11:08 Pulse Rate 64 09/05/18 11:08 Respiratory Rate 20 09/05/18 11:08 Blood Pressure 128/78 09/05/18 11:08 Pulse Oximetry 97 09/05/18 11:08 Medical Decision Making MDM Narrative Medical decision making narrative: 62yo M here with chest pain and generalized fatigue for 2 days. Pt said he sometimes feels like his heart beat is irregular and said in the past, this was from alcohol but does not actually have any diagnosis of arrhythmia. He is in sinus rhythm in the ED. He is on a continuous director of cardiac rehabilitation. Will obtain labs including cardiac enzymes and likely admit to chest pain center. Labs reviewed, no leukocytosis. H/H elevated. Troponin negative. K mildly decreased at 3.4, replaced orally. Lipase normal. TSH normal. Magnesium normal. CXR showed underinflated mild atelectasis at bases and possible nodular parenchymal opacity in the right lung zone. This could be further evaluated with good inspiratory formal PA and lateral views of the chest or consider follow up chest xray to confirm resolution. Repeat 2 view CXR showed no definite parenchymal opacity. Pt to be admitted to chest pain center for serial EKG and cardiac enzymes. Medical Screen Exam Complete: Yes Emergency Medical Condition: Yes Differential Diagnosis Differential Diagnosis: ACS vs. electrolyte abnormality vs. arrhythmia vs. alcohol cardiomyopathy Lab Data Result diagrams: 09/05/18 06:45 09/05/18 06:45 Lab Results 09/05/18 09/05/18 09/05/18 Range/Units 06:45 06:45 06:45 WBC 5.6 (4.0-11.0) th/mm3 RBC 5.29 (4.50-5.90) mil/mm3 Hgb 17.5 H (13.0-17.0) gm/dL Hct 51.3 H (39.0-51.0) % MCV 97.1 (80.0-100.0) fL MCH 33.1 (27.0-34.0) pg MCHC 34.1 (32.0-36.0) % RDW 14.5 (11.6-17.2) % Plt Count 193 (150-450) th/mm3 MPV 8.1 (7.0-11.0) fL Neut % (Auto) 48.4 (16.0-70.0) % Lymph % (Auto) 34.7 (9.0-44.0) % [place] % (Auto) 14.1 H (0.0-8.0) % Eos % (Auto) 2.1 (0.0-4.0) % Baso % (Auto) 0.7 (0.0-2.0) % Neut # (Auto) 2.7 (1.8-7.7) th/mm3 Lymph # (Auto) 1.9 (1.0-4.8) th/mm3 [place] # (Auto) 0.8 (0.0-0.9) th/mm3 Eos # (Auto) 0.1 (0.0-0.4) th/mm3 Baso # (Auto) 0.0 (0.0-0.2) th/mm3 WBC Differential . Differential Comment Auto diff final PT 10.4 (9.8-11.6) sec INR 1.0 Ratio APTT 28.6 (24.3-30.1) sec Sodium 142 (136-145) meq/L Potassium 3.4 L (3.5-5.1) meq/L Chloride 106 (98-107) meq/L Carbon Dioxide 28.8 (21.0-32.0) meq/L Anion Gap 7 (5-15) meq/L BUN 12 (7-18) mg/dL Creatinine 1.08 (0.60-1.30) mg/dL Estimated GFR 69 L (>89) mL/min Random Glucose 104 (74-106) mg/dL Calcium 9.3 (8.5-10.1) mg/dL Magnesium 2.3 (1.5-2.5) mg/dL Total Creatine Kinase (39-308) U/L Troponin I Less than 0.02 L (0.02-0.05) ng/mL Lipase 155 (73-393) U/L TSH 2.820 (0.358-3.740) uIU/mL Serum Alcohol Less than 3 (0-5) mg/dL 09/05/18 Range/Units 09:44 WBC (4.0-11.0) th/mm3 RBC (4.50-5.90) mil/mm3 Hgb (13.0-17.0) gm/dL Hct (39.0-51.0) % MCV (80.0-100.0) fL MCH (27.0-34.0) pg MCHC (32.0-36.0) % RDW (11.6-17.2) % Plt Count (150-450) th/mm3 MPV (7.0-11.0) fL Neut % (Auto) (16.0-70.0) % Lymph % (Auto) (9.0-44.0) % [place] % (Auto) (0.0-8.0) % Eos % (Auto) (0.0-4.0) % Baso % (Auto) (0.0-2.0) % Neut # (Auto) (1.8-7.7) th/mm3 Lymph # (Auto) (1.0-4.8) th/mm3 [place] # (Auto) (0.0-0.9) th/mm3 Eos # (Auto) (0.0-0.4) th/mm3 Baso # (Auto) (0.0-0.2) th/mm3 WBC Differential Differential Comment PT (9.8-11.6) sec INR Ratio APTT (24.3-30.1) sec Sodium (136-145) meq/L Potassium (3.5-5.1) meq/L Chloride (98-107) meq/L Carbon Dioxide (21.0-32.0) meq/L Anion Gap (5-15) meq/L BUN (7-18) mg/dL Creatinine (0.60-1.30) mg/dL Estimated GFR (>89) mL/min Random Glucose (74-106) mg/dL Calcium (8.5-10.1) mg/dL Magnesium (1.5-2.5) mg/dL Total Creatine Kinase 202 (39-308) U/L Troponin I Less than 0.02 L (0.02-0.05) ng/mL Lipase (73-393) U/L TSH (0.358-3.740) uIU/mL Serum Alcohol (0-5) mg/dL Imaging Data Radiologist's impression: Chest X-Ray 09/05/18 07:00 CONCLUSION: Underinflation with mild atelectasis at the bases and possible nodular parenchymal opacity in the right lower lung zone. This could be further evaluated with good inspiratory formal PA and lateral views of the chest or consider follow-up chest x-ray to confirm resolution. Chest X-Ray 09/05/18 08:21 CONCLUSION: No definite parenchymal opacity is identified. ECG Data EKG Prior to Arrival: No Attestation: I personally reviewed and interpreted this ECG as follows: Interpretation: NSR 73bpm. Normal axis. WV interval 179ms. QTc 409ms. No significant ST elevation or depression. Discharge Plan Discharge Disposition Patient Disposition: 30 Still Patient Discharge Condition Condition: Stable Discharge Order Discharge Orders: Discharge Order (Routine); Ordered 09/05/18 Ordered By: Yunior Dhillon Discharge Details Diagnosis: Chest pain Physicians Team ED Provider: Janene Can Primary Care Provider: Abelino Harmon Attending Provider: Merrick Quiroz Status ED Status: Left Department Discharge Information Discharge Date/Time: 09/05/18 10:00
--- NOTE | 2018-09-05 07:24 | XR ---
EXAM DATE: 09/05/2018 7:18 AM EDT AGE/SEX: 62 years / Male INDICATIONS: Patient states that he has chest discomfort. CLINICAL DATA: This is the patient's initial encounter. Patient reports that signs and symptoms have been present for 1 day and indicates a pain score of 3/10. MEDICAL/SURGICAL HISTORY: None. . Hiatal hernia; RT knee COMPARISON: No prior exams available for comparison. FINDINGS: Portable AP view of the chest demonstrates a normal-sized cardiac silhouette. EKG lines overlie the p atient. Lungs are mildly underinflated with mild degree of atelectasis at the lung bases. Parenchymal opacity in the right lower lobe appears somewhat nodular. No pleural effusion or pneumothorax is woo ntified. The bones and soft tissues demonstrate no acute abnormality. CONCLUSION: Underinflation with mild atelectasis at the bases and possible nodular parenchymal opacity in the rig ht lower lung zone. This could be further evaluated with good inspiratory formal PA and lateral views of the chest or consider follow-up chest x-ray to confirm resolution. Electronically signed by: Bogdan Bernstein MD 09/05/2018 7:23 AM EDT
[2018-09-05 07:38] LABS: Baso % (Auto) 0.7 % (0.0-2.0); Eos # (Auto) 0.1 th/mm3 (0.0-0.4); Eos % (Auto) 2.1 % (0.0-4.0); Hematocrit 51.3 % (39.0-51.0); Hemoglobin 17.5 gm/dL (13.0-17.0); Lymph # (Auto) 1.9 th/mm3 (1.0-4.8); Lymph % (Auto) 34.7 % (9.0-44.0); Mean Corpuscular HGB Conc 34.1 % (32.0-36.0); Mean Corpuscular Hemoglobin 33.1 pg (27.0-34.0); Mean Corpuscular Volume 97.1 fL (80.0-100.0); Mean Platelet Volume 8.1 fL (7.0-11.0); Mono # (Auto) 0.8 th/mm3 (0.0-0.9); Mono % (Auto) 14.1 % (0.0-8.0); Neut # (Auto) 2.7 th/mm3 (1.8-7.7); Neut % (Auto) 48.4 % (16.0-70.0); Platelet Count 193 th/mm3 (150-450); Red Blood Count 5.29 mil/mm3 (4.50-5.90); Red Cell Distribution Width 14.5 % (11.6-17.2); White Blood Count 5.6 th/mm3 (4.0-11.0)
[2018-09-05 07:43] LABS: Activated Partial Thrombo Time 28.6 sec (24.3-30.1); Prothrombin Time 10.4 sec (9.8-11.6)
[2018-09-05 07:49] LABS: Anion Gap 7 meq/L (5-15); Blood Urea Nitrogen 12 mg/dL (7-18); Calcium 9.3 mg/dL (8.5-10.1); Carbon Dioxide 28.8 meq/L (21.0-32.0); Chloride 106 meq/L (98-107); Glomerular Filtration Rate 69 mL/min (>89); Glucose,Random 104 mg/dL (74-106); Lipase 155 U/L (73-393); Magnesium 2.3 mg/dL (1.5-2.5); Potassium 3.4 meq/L (3.5-5.1); Sodium 142 meq/L (136-145)
--- NOTE | 2018-09-05 08:43 | XR ---
EXAM DATE: 09/05/2018 8:38 AM EDT AGE/SEX: 62 years / Male INDICATIONS: . Chest pain. Irregular heart beat. CLINICAL DATA: This is the patient's initial encounter. Patient reports that signs and symptoms have been present for 1 day and indicates a pain score of 0/10. MEDICAL/SURGICAL HISTORY: None. . Hiatal hernia; RT knee COMPARISON: [facility], CHEST 1V SINGLE AP, 09/05/2018. . FINDINGS: Frontal and lateral views of the chest demonstrate normal size cardiac silhouette. EKG lines overlie the patient. EKG lines and fortunately overlie the location of the suspected abnormality on the prior study. However, on the lateral projection no airspace abnormality is identified. No pleural effusion or pneumothorax is seen. Bones demonstrate no acute finding but there are degenerative changes of th e thoracic spine. CONCLUSION: No definite parenchymal opacity is identified. Electronically signed by: Bogdan Bernstein MD 09/05/2018 8:42 AM EDT
[2018-09-05 09:47] VITALS: RESP 20
--- NOTE | 2018-09-05 10:10 | P.HPCA ---
History of Present Illness Primary Care Physician: Abelino Harmon MD Chief Complaint: Palpitations and chest pain History of Present Illness: This is a 62-year-old male the presents to ED via private vehicle with his with complaint of having 2 days of intermittent palpitations that he describes as an early or skipped beat. Nothing in particular brings it on. First episode was 2 days ago and it lasted basically all day. He states sometimes it could be as much is every third beat. That evening however he began to feel better. He woke up yesterday morning feeling better still but a little later developed the same symptoms but at same time also developed a heaviness in the center of his chest. Symptoms would last anywhere from 30 minutes to 2 hours. He found that the discomfort was associated with palpitation. Denies associated shortness of breath, nausea, or diaphoresis. States he had a stress test years ago and was okay. Currently denies chest discomfort. Has not felt palpitations since being in the emergency department. History of hyperlipidemia. He has had palpitations in the past. Denies hypertension, diabetes, and CAD. He is not really sure of his family cardiac history. But he thinks his sister may have some type of heart issue. Quit smoking about 20 years ago but prior that he smoked 1/2 pack a series daily for 15-20 years. He has an average 3-4 ounces of rum daily. Denies illicit drug use. - Diagnosis (1) Chest pain (2) Palpitations (3) Hyperlipidemia Review of Systems General: Patient denies fevers, chills, and recent travel. HEENT: Patient denies headache, sore throat, difficulty swallowing. Cardiovascular: Has sensation of heart beating irregularly. Has the chest discomfort as mentioned above. Denies sensation of heart beating rapidly. No syncope. Denies diaphoresis. Respiratory: Denies shortness of breath or inspirational chest discomfort. Denies coughing wheezing or hemoptysis. GI: Patient denies nausea, vomiting, diarrhea, abdominal pain, bloody stools. Musculoskeletal: Patient denies joint pain or edema. Denies calf pain or edema. Neurovascular: Patient denies numbness, tingling, weakness in extremities. Denies headache. Endocrine: Denies polyuria and polydipsia. Hematologic: Denies easy bruising. Skin: Denies rash or itching. PMFSH - History History Provided By: Patient - Medical History Medical History: Medical History (Last Updated 09/05/18 @ 06:30 by Nguyễn Hanson) Hyperlipidemia TIA (transient ischemic attack) - Tobacco History Smoking Status: Former smoker - Alcohol History How Often Do You Have a Drink Containing Alcohol: 4 or more times a week - Substance Use History Substance History: No History of Abuse - Travel History Recent Travel in the [place] Within the Last 8 Weeks: No Recent Travel Out of the Country Within the Last 8 Weeks: No - Immunization History Tetanus Immunization: Unsure Medications and Allergies Active Medications: Active Medications Atorvastatin Calcium (Lipitor) 20 mg PO DAILY [place] Ondansetron HCl (Zofran Inj) 4 mg IV.PUSH Q6H PRN PRN Reason: NAUSEA Sodium Chloride (Ns Flush) 2 ml IV.FLUSH UNSCH PRN PRN Reason: FLUSH AFTER USING IV ACCESS Sodium Chloride (Ns Flush) 2 ml IV.FLUSH BID ROSEMARY Sodium Chloride (Ns Flush) 2 ml IV.FLUSH PRN PRN PRN Reason: FLUSH AFTER USING IV ACCESS Allergies Allergy/AdvReac Type Severity Reaction Status Date / Time No Known Allergies Allergy Verified 09/05/18 06:31 Home Medications Medication Instructions Recorded Confirmed Type atorvastatin 20 mg PO DAILY 09/05/18 09/05/18 History Exam Vital signs: Vital Signs 09/05/18 06:27 09/05/18 06:51 09/05/18 07:05 Temperature 98.9 F Pulse Rate 71 88 74 Respiratory Rate 19 16 Blood Pressure 172/93 H 137/88 Pulse Oximetry 98 98 98 09/05/18 09:02 09/05/18 09:46 Temperature Pulse Rate 79 70 Respiratory Rate 16 20 Blood Pressure 146/82 H 146/82 H Pulse Oximetry 97 98 Intake & Output 09/04/18 09/05/18 09/05/18 18:59 06:59 18:59 Weight 92.986 kg Narrative: GENERAL: This is a well-nourished, well-developed patient, in no apparent distress. Patient speaks in clear complete sentences. Patient is pleasant. HEENT: Head is atraumatic and normocephalic. Neck is supple without lymphadenopathy and trachea is midline. No JVD or carotid bruits. CARDIOVASCULAR: Regular rate and rhythm without murmurs, gallops, or rubs. RESPIRATORY: Clear to auscultation. Breath sounds equal bilaterally. No wheezes , rales, or rhonchi. Chest wall is nontender. No use of accessory muscles. GASTROINTESTINAL: Abdomen is nontender, nondistended. Abdomen soft. No obvious pulsatile mass or bruit. No CVA tenderness. Strong femoral pulses bilaterally. Normal bowel sounds in all quadrants. MUSCULOSKELETAL: Patient is moving upper and lower extremities freely. No calf tenderness or edema, no Homans sign. Strong pulses in upper and lower extremities. NEUROLOGICAL: Patient is alert and oriented. Cranial nerves 2-12 are grossly intact. No focal deficits and speech is clear. SKIN: No rash and turgor is normal. Results 09/05/18 06:45 09/05/18 06:45 Cardiac Enzymes 09/05/18 Range/Units 06:45 Troponin I Less than 0.02 L (0.02-0.05) ng/mL Coagulation 09/05/18 Range/Units 06:45 PT 10.4 (9.8-11.6) sec APTT 28.6 (24.3-30.1) sec CBC 09/05/18 Range/Units 06:45 WBC 5.6 (4.0-11.0) th/mm3 RBC 5.29 (4.50-5.90) mil/mm3 Hgb 17.5 H (13.0-17.0) gm/dL Hct 51.3 H (39.0-51.0) % Plt Count 193 (150-450) th/mm3 Neut # (Auto) 2.7 (1.8-7.7) th/mm3 Lymph # (Auto) 1.9 (1.0-4.8) th/mm3 [place] # (Auto) 0.8 (0.0-0.9) th/mm3 Eos # (Auto) 0.1 (0.0-0.4) th/mm3 Baso # (Auto) 0.0 (0.0-0.2) th/mm3 Comprehensive Metabolic Panel 09/05/18 Range/Units 06:45 Sodium 142 (136-145) meq/L Potassium 3.4 L (3.5-5.1) meq/L Chloride 106 (98-107) meq/L Carbon Dioxide 28.8 (21.0-32.0) meq/L BUN 12 (7-18) mg/dL Creatinine 1.08 (0.60-1.30) mg/dL Calcium 9.3 (8.5-10.1) mg/dL Intake and Output 09/04/18 09/05/18 09/05/18 22:59 06:59 14:59 Other: Weight 92.986 kg - Imaging and Cardiology Imaging: Impressions Chest X-Ray 09/05/18 07:00 CONCLUSION: Underinflation with mild atelectasis at the bases and possible nodular parenchymal opacity in the right lower lung zone. This could be further evaluated with good inspiratory formal PA and lateral views of the chest or consider follow-up chest x-ray to confirm resolution. Chest X-Ray 09/05/18 08:21 CONCLUSION: No definite parenchymal opacity is identified. EKG interpretations - EKG EKG shows: sinus rhythm (Initial EKG is sinus rhythm without significant ST segment depressions or elevations.) Caprini VTE Risk Assessment Caprini VTE Risk Assessment: Moderate/High Risk (score >= 2) Caprini Risk Assessment Model: Point Value = 1 Point Value = 2 Point Value = 3 Point Value = 5 Age 41-60 Minor surgery BMI > 25 kg/m2 Swollen legs Varicose veins or History of unexplained or recurrent spontaneous Oral contraceptives or hormone replacement Sepsis (< 1 month) Serious lung disease, including pneumonia (< 1 month) Abnormal pulmonary function Acute myocardial infarction Congestive heart failure (< 1 month) History of inflammatory bowel disease Medical patient at bed rest Age 61-74 Arthroscopic surgery Major open surgery (> 45 min) Laparoscopic surgery (> 45 min) Malignancy Confined to bed (> 72 hours) Immobilizing plaster cast Central venous access Age >= 75 History of VTE Family history of VTE Factor V Leiden Prothrombin [id number] Lupus anticoagulant Anticardiolipin antibodies Elevated serum homocysteine Heparin-induced thrombocytopenia Other congenital or acquired thrombophilia Stroke (< 1 month) Elective arthroplasty Hip, pelvis, or leg fracture Acute spinal cord injury (< 1 month) Prophylaxis Regimen: Total Risk Factor Score Risk Level Prophylaxis Regimen 0-1 Low Early ambulation 2 Moderate Order ONE of the following: *Sequential Compression Device (SCD) *Heparin 5000 units SQ BID 3-4 Higher Order ONE of the following medications: *Heparin 5000 units SQ TID *Enoxaparin/Lovenox 40 mg SQ daily (WT < 150 kg, CrCl > 30 mL/min) *Enoxaparin/Lovenox 30 mg SQ daily (WT < 150 kg, CrCl > 10-29 mL/min) *Enoxaparin/Lovenox 30 mg SQ BID (WT < 150 kg, CrCl > 30 mL/min) AND/OR *Sequential Compression Device (SCD) 5 or more Highest Order ONE of the following medications: *Heparin 5000 units SQ TID (Preferred with Epidurals) *Enoxaparin/Lovenox 40 mg SQ daily (WT < 150 kg, CrCl > 30 mL/min) *Enoxaparin/Lovenox 30 mg SQ daily (WT < 150 kg, CrCl > 10-29 mL/min) *Enoxaparin/Lovenox 30 mg SQ BID (WT < 150 kg, CrCl > 30 mL/min) AND *Sequential Compression Device (SCD) Assessment and Plan - Assessment (1) Chest pain Code(s): R07.9 - Chest pain, unspecified Status: Acute (2) Palpitations Code(s): R00.2 - Palpitations Status: Acute (3) Hyperlipidemia Code(s): E78.5 - Hyperlipidemia, unspecified Status: Acute - Plan * Chest pain: Patient will continue to have serial cardiac enzymes and EKGs for ruling out purposes. He will be seen by Dr. Quiroz of cardiology in the chest pain center. He likely will have a stress test and if that is nonischemic he would be discharged home with instructions to follow-up with PCP. Return to ED for interval issues. * Palpitations: He has felt no palpitations since being in the emergency department. While I was watching the monitor, there was one PAC'S noted. He did not feel it. He should discuss this further with his PCP. Event monitor may be helpful. * Hyperlipidemia: Continue medication. Patient is stable at this time. He is agreeable to this plan.
[2018-09-05 10:50] LABS: Creatine Kinase 202 U/L (39-308)
[2018-09-05 11:09] VITALS: BP 128/78; PULSE 64; TEMP 98.5; O2SAT 97
--- NOTE | 2018-09-05 12:33 | TR ---
Date Performed: 09/05/2018 Time Performed: 11:22:22 DOCTOR: Merrick Quiroz DRUG LIST: CLINICAL HISTORY: REASON FOR TEST: Chest pain REASON FOR ENDING: OBSERVATION: CONCLUSION: NEO PROTOCOL. NO CP. TEST STOPPED AFTER EXCEEDING GOAL HR SECONDARY TO SOB AND LEG FATIGUE. OCCASIONAL PVCS AND PACS.Maximum RP=045 % Max HR Uyaozpqp=087.0% Maximum VM=698/84 Total Ex ercise Time=6:00 COMMENTS: Conclusion: Normal treadmill exercise. No evidence of ischemia.
--- NOTE | 2018-09-05 23:55 | ECG ---
Date Performed: 09/05/2018 Time Performed: 09:40:26 PTAGE: 62 years EKG: Sinus rhythm NORMAL ECG PREVIOUS TRACING : 09/05/2018 06.40 DOCTOR: Oleksandr Abraham Interpretating Date/Time 09/05/2018 23:54:16
--- NOTE | 2018-09-06 00:01 | ECG ---
Date Performed: 09/05/2018 Time Performed: 06:40:01 PTAGE: 62 years EKG: Sinus rhythm NORMAL ECG PREVIOUS TRACING : 10/19/2017 10.41 DOCTOR: Oleksandr Abraham Interpretating Date/Time 09/05/2018 23:59:57
== END 2018-09-05 13:42 | disposition home or self-care (01) ==
LOC: NEDA 06:25 → NEPC 06:25 → NEDA 10:00 → NEPHCDU 11:07